=== PATIENT | male | born 1995 | race Caucasian/White ===

== ENCOUNTER 2024-08-20 09:10 | Outpatient (AMB) | payer OTHER, SELFPAY ==
--- NOTE | 2024-08-20 09:13 | MHC.OFFVIS ---
Intake Visit Reasons: microscopic hematuria Intake Note: Patient is present for MICROSCOPIC HEMATURIA Urology Medication:NONE Antibiotic Allergy:NONE Blood Thinner:NONE Flight Control Tower Operator Required: No Allergies No Known Allergies Allergy (Verified 08/20/24 09:14) Results AMB Urinalysis, Automated UA Leukoctes 0 Arvind/uL Last Edit by CRESCENCIO Islas on 08/20/24 09:28 UA Nitrite Negative Last Edit by CRESCENCIO Islas on 08/20/24 09:28 UA Urobilinogen 0.2 mg/dL Last Edit by CRESCENCIO Islas on 08/20/24 09:28 UA Protein 0 mg/dL Last Edit by CRESCENCIO Islas on 08/20/24 09:28 UA pH 6.0 Last Edit by CRESCENCIO Islas on 08/20/24 09:28 UA Blood 10 Emerson/uL Last Edit by CRESCENCIO Islas on 08/20/24 09:28 UA Specific [place] 1.020 Last Edit by CRESCENCIO Islas on 08/20/24 09:28 UA Ketone Negative Last Edit by CRESCENCIO Islas on 08/20/24 09:28 UA Bilirubin 0 mg/dL Last Edit by CRESCENCIO Islas on 08/20/24 09:28 UA Glucose 0 mg/dL Last Edit by CRESCENCIO Islas on 08/20/24 09:28 Results Reviewed Results Reviewed: Laboratory Last Values Urine pH (Auto) 6.0 08/20/24 09:28 Specific [place] (Auto) 1.020 08/20/24 09:28 Urine Protein (Auto) 0 mg/dL 08/20/24 09:28 Glucose (UA)(Auto) 0 mg/dL 08/20/24 09:28 Urine Ketones (Auto) Negative 08/20/24 09:28 Urine Blood (Auto) 10 Emerson/uL 08/20/24 09:28 Urine Nitrite (Auto) Negative 08/20/24 09:28 Urine Bilirubin (Auto) 0 mg/dL 08/20/24 09:28 Urine Urobilinogen (Auto) 0.2 mg/dL 08/20/24 09:28 Leukocyte Esterase (Auto) 0 Arvind/uL 08/20/24 09:28 Assessment & Plan Assessment & Plan Orders: Orders AMB Urinalysis Automated Today Z13.9 - Encounter for screening, unspecified Coding
== END 2024-08-20 10:49 | disposition home or self-care (01) ==
PROVIDERS: Visit Provider Urology
DX: Z13.9 Encounter for screening, unspecified (principal)

== ENCOUNTER → 2024-08-20 09:10 | Outpatient (BNVA) | payer OTHER, SELFPAY | PROVIDERS: Visit Provider Urology | DX: N48.1 Balanitis (principal); N47.8 Other disorders of prepuce; N47.1 Phimosis | CPT/HCPCS: 81003 ==

== ENCOUNTER 2025-01-17 15:46 | Outpatient (AMB) | payer OTHER, SELFPAY ==
--- NOTE | 2025-01-16 22:21 | MHC.OFFVIS ---
Intake Visit Reasons: 6m Intake Note: Patient is present for 6m/follow up Urology Medication:NONE Antibiotic Allergy:NONE Blood Thinner:NONE Allergies No Known Allergies Allergy (Verified 01/17/25 15:47) HPI Comments Details: 01/17/25-- 6 month FU-- h/o balanitis, LV 08/2024--declined circ at that time. History of Present Illness - The patient is a 29-year-old male presenting with concerns regarding testicular pain and fertility. - Balanitis and phimosis were initially treated in August with Lotrisone cream. - Circumcision was discussed as a potential treatment for recurrent symptoms. - The patient experienced testicular pain and underwent an ultrasound at [facility] - The patient has questions regarding fertility and sperm count, and was informed about available labs for semen analysis. Results - Ultrasound of the testicles performed at [facility]; Office will obtain results Plan - Obtain and review the ultrasound report from [facility] to assess testicular pain. - Discussed the option of circumcision for recurrent balanitis and phimosis. - Provided information on labs for semen analysis to address fertility concerns. - Follow-up will be arranged based on the results of the semen analysis and ultrasound, or as needed. 08/20/24--Artsem is here with complaints of redundant foreskin, sometimes diffult to retract, redness, and chaffing. States sometimes urine smells and foreskin is moist from urine, and when he wipes the foreskin he sees blood. Discussed treat options to include antifungal cream, discussed circumcision therapy. Pt is not interested in surgical procedure/circumcision at this time. Lotrisone cream ordered. Review of Systems Const All systems reviewed & are unremarkable except as noted in HPI and below Reports no additional complaints Eyes Reports no additional complaints ENT Reports no additional complaints Card Reports no additional complaints Resp Reports no additional complaints GI Reports no additional complaints Reports as per HPI Musc Reports no additional complaints Skin/Breast Reports system reviewed and no additional complaints, except as documented Neuro Reports no additional complaints Psych Reports no additional complaints Endo Reports no additional complaints Marcelino/Lymph Reports no additional complaints Aller/Immun Reports no additional complaints Telehealth Telehealth Telehealth Platform: Telephone Location of provider rendering services: practice address Location of patient: address on file Patient Identification confirmed using: Name, : Yes Telehealth method: voice only Patient verbally consented to treatment: Yes Patient verbally consented to billing insurance company: Yes Patient informed of any privacy concerns related to visit: Yes Minutes spent on Phone/Video with Pt.: 13 Assessment & Plan Assessment & Plan (1) Balanitis: Code(s): N48.1 - Balanitis (2) Redundant foreskin: Code(s): N47.8 - Other disorders of prepuce Category: Medical (3) Phimosis: Code(s): N47.1 - Phimosis Category: Medical (4) Testicular pain: Code(s): N50.819 - Testicular pain, unspecified Category: Medical Plan Plan - Obtain and review the ultrasound report from [facility] to assess testicular pain. - Discussed the option of circumcision for recurrent balanitis and phimosis. - Provided information on labs for semen analysis to address fertility concerns. - Follow-up will be arranged based on the results of the semen analysis and ultrasound, or as ne Patient Instructions: The patient had an opportunity to ask questions regarding treatment plan. The patient expressed understanding and agreement with the above treatment plan. The patient is aware they should contact our office by phone for worsening of their current condition or the appearance of new symptoms. Compliance is encouraged with any medications and followup testing that is ordered. It is a privilege to be allowed the opportunity to participate in the urologic care of your patient. If you have any questions or concerns regarding treatment for the above conditions please do not hesitate to contact me. The office telephone contact is [phone]. This note is constructed in part using voice recognition software. While every effort has been made to ensure accuracy manager field service errors may have been included. Yours sincerely, Mihaela Hall MD Scribe Plan - Not visible on output: Patient was informed and verbally consented to the use of an ambient scribe for clinic note documentation during this visit. Coding Level of Care Code Tele Est Pt Level 3 (26575) Diagnoses Balanitis N48.1 Redundant foreskin N47.8 Phimosis N47.1 Testicular pain N50.819
--- OUTSIDE RECORDS SUMMARY | 2025-01-17 15:48 | XMS_ITS | Clinical Summary ---
Author Organization [facility] Address [address] [place] [address] Care Team Providers Care Wardrobe Assistant Name Role Phone Lisa Diane NP Primary Care Provider Source Comments PLEASE NOTE, if this patient is a minor, it may be UNLAWFUL to discuss sensitive information that is contained in these records (such as FAMILY PLANNING, MENTAL HEALTH or SUBSTANCE ABUSE) with the minor patient's parent or other person without the patient's specific authorization.[facility] Allergies No known active allergies Medications fluticasone (FLONASE) 50 mcg/actuation nasal sprayIndication s:Chronic nasal congestion Place 1 [place] in both nostrils once daily 16 g 4 Active ibuprofen 800 mg tabletIndicatio ns:Right testicular pain,Epididymit is Take 1 Tablet by mouth 3 (three) times daily as needed for pain 90 Tablet 5 Active clotrimazole-be tamethasone (LOTRISONE) 1-0.05 % creamIndication s:Balanitis Apply topically once daily 45 g 5 Active Active Problems Problem Noted Date Diagnosed Date Hepatic steatosis 06/28/2024 Acne 03/18/2014 Immune to varicella 07/22/2009 Encounters Date Type Department Care Team Description 11/13/2024 10:00 AM EDT Office Visit [address] [phone] Reynaldo Dunn FNP from Last 3 Months Immunizations Immunization Administration Dates Next Due DTAP (DAPTACEL),5 PERTUSSIS ANTIGENS 01/28/2000, 08/11/1998,04/18/1998 HEP B, PED/ADOL (GRSGMSY-X-OTNP/RECOMBIVAX-PEDS) 12/26/2009,09/19/2009,08/22/2009 IPV (IPOL) 04/01/2005, 2,02/29/2000,06/26,08/11/1998,04/18/1998 MENINGOCOCCAL MCV4P (MENACTRA) 08/13/2016 MENINGOCOCCAL VACCINE,CONJUG ATE (NON-INTERFACE) 07/22/2009 MMR (MMR II/Priorix) 11/24/2004,10/14/1999 TDAP 02/27/2021, 1,11/28/2008,01/08 Family History Medical History Relation Name Comments No Known Problems Father Migraines Mother Relation Name Status Comments Brother Alive Father Alive Mother Alive Sister Alive Social History Tobacco Use Types Packs/Day Years Used Date Smoking Tobacco: Never Smokeless Tobacco: Never Alcohol Use Standard Drinks/Week Comments Yes 0 (1 standard drink = 0.6 oz pur e alcohol) social Social Connections Answer Date Recorded How often do you feel lonely or isolated from th ose around you? 1 06/15/2024 Financial Resource Strain Answer Date R ecorded Hard to pay for: Food 1 06/15/2024 Stress Answer Date Recorded Stress 0 09/23/2022 Physical Activity Answer Date Recorded Physical Activity 0 02/27/2021 Food Insecurity Answer Date Recorded Hard to pay for: Food 1 06/15/2024 Transportation Needs Answer Date Record ed Hard to pay for: Transportation 1 06/15/2024 Housing Stability Answer Date Recorded Hard to pay for: Rent/Mortgage payment 1 06/15/2024 Safety and Environment Answer Date Ludwin rded Safety 0 09/23/2022 Utilities Answer Date Recorded Hard to pay for: Utilities 1 06/15 Employment Answer Date Recorded Stress 0 09/28/2021 Sex and Gender Information Value Date Recorded Sex Assigned at Male 02/27/2021 11:52 AM PDT Legal Sex Male 11:36 AM PDT Gender Identity Male 02/27/2021 11:52 AM PDT Sexual Orientation Straight 02/27/2021 11 :52 AM PDT Last Filed Vital Signs Vital Sign Reading Time Taken Comments Blood Pressure 138/85 11/13/2024 9:38 AM EDT Pulse 84 11/13/2024 9:38 AM EDT Temperature 37.2 C (98.9 F) 11/13/2024 9:38 AM EDT Respiratory Rate 18 11/13/2024 9:38 AM EDT Oxygen Saturation 97% 06/15/2024 11:10 AM EST Inhaled Oxygen Concentration - - Weight 83.9 kg (185 lb) 11/13/2024 9:38 AM EDT Height 170.2 cm (5' 7 ) 09/23/2022 3:46 PM EDT Body Mass Index 28.98 09/23/2022 3:46 PM EDT Plan of Treatment Health Maintenance Due Date Last Done Comments Alcohol and Drug Screen 07/11/2024 06/15/20 24, 02/27/2021, 08/13/2016, Additional history exists Annual Wellness (Adult): Indicated (All Coverage) 06/15/2025 06/15/2024, 09/23/2022, 02/27/2021, Additional history exists Anxiety Screening 06/15/2025 06/15/2024 Tobacco Screening 06/15/2025 06/15/2024 Hypertension Screening (#1) 11/13/2025 Imm-DTaP/Tdap/Td (8 - Td or Tdap) 02/27/2031 02/27/2021, 05/19/2011, 11/28/2008, Additional history exists Imm-Hepatitis B Completed 12/26/2009, 09/08, 08/22/2009 HIV Screening Completed 02/27/2021 Hepatitis C Screening Completed 09/29/2022 Depression Annual Screen Completed 025, 06/15/2024, 08/13/2016 [id number] Discontinued Imm-Influenza Discontinued Procedures Procedure Name Priority Date/Time Associated Diagnosis Comments US SCROTUM/TESTICLES Urgent 11/16/2024 3:00 AM EDT Testicular discomfort HEPATITIS C AB W/RFLX HCV RNA, QT, RT PCR Routine 09/29/2022 11:47 AM EDT Need for hepatitis C screening test HIV 1/2 AG & AB W/RFLX (4TH GEN) Routine 02/27/2021 3:32 PM EDT Encounter for general adult medical examination w/o abnormal findings from Last 3 Months or Most Recently Relevant to Health Maintenance Results * US SCROTUM/TESTICLES [[id number]] ([facility]us) (11/16/2024 3:00 AM EDT) 11/16/2024 3:00 AM EDT Reynaldo Dunn CURRICULUM DEVELOPMENT COORDINATOR IMG ULTRASOUND Final Result [facility] Corporate Office [address], [address] [place] [address], * HEPATITIS C AB W/RFLX HCV RNA, QT, RT PCR (09/29/2022 11:47 AM EDT) Pathologist [facility] HEPATITIS C ANTIBODY NON-REACT BIJAL NON-REACT BIJAL [employer] [facility] SIGNAL TO CUT-OFF 0.10 <1.00 [employer] Comment: HCV antibody was non-reactive. There is no laboratory evidence of HCV infection. In most cases, no further action is required. However, if recent HCV exposure is suspected, a test for HCV RNA (test code 43257) is suggested. For additional information please refer to http://education.[employer]/faq/ATY69q0 (This link is being provided for informational/ educational purposes only.) Blood Blood / Unknown 09/29/2022 1 1:47 AM EDT 09/29/2022 11:48 AM EDT Lisa Diane SYSTEMS ADMINISTRATION ANALYST LAB - BLOOD DRAW Edited Resu lt - Final [facility] [address] [address], [facility] [address] [address] * HIV 1/2 AG & AB W/RFLX (4TH GEN) (02/27/2021 3:32 PM EDT) HIV AG/AB, 4TH GEN NON-REAC TIVE NON-REAC TIVE [employer] [facility] Comment: HIV-1 antigen and HIV-1/HIV-2 antibodies were not detected. There is no laboratory evidence of HIV infection. PLEASE NOTE: This information has been disclosed to you from records whose confidentiality may be protected by state law. If your state requires such protection, then the state law prohibits you from making any further disclosure of the information without the specific written consent of the person to whom it pertains, or as otherwise permitted by law. A general authorization for the release of medical or other information is NOT sufficient for this purpose. For additional information please refer to http://education.[employer]/faq/TND713 (This link is being provided for informational/ educational purposes only.) The performance of this assay has not been clinically validated in patients less than 2 years old. Blood Blood / Unknown 02/27/2021 3 :32 PM EDT 02/27/2021 3:33 PM EDT Narrative [employer] - 03/04/2021 3:43 PM EDT FASTING:NO Flower Herzog [facility] [place] LAB - BLOOD DRAW Final Resu lt [facility] [address] [address], [facility] [address] [address] from Last 3 Months or Most Recently Relevant to Health Maintenance Insurance [facility] [place]ICAID Care Teams Wardrobe Assistant Relationship Specialty Start Date End Date Lisa Diane NP [address] [place] [address] PCP - General Internal Medicine 09/23/22
== END 2025-01-17 16:56 | disposition home or self-care (01) ==
LOC: HO.HUSH 15:46
PROVIDERS: Visit Provider Urology
DX: N48.1 Balanitis (principal); N47.8 Other disorders of prepuce; N47.1 Phimosis; N50.819 Testicular pain, unspecified
CPT/HCPCS: 99213

== ENCOUNTER 2025-05-31 11:34 | Outpatient (AMB) | payer OTHER, SELFPAY ==
--- NOTE | 2025-05-31 12:21 | MHC.OFFVIS ---
Intake Visit Reasons: Follow up Intake Note: Patient is present for a follow up Urology Medication:NONE Antibiotic Allergy:NONE Blood Thinner:NONE Allergies No Known Allergies Allergy (Verified 05/31/25 12:30) HPI Comments Details: 05/31/25-the patient in the past balanitis 01/17/25-- 6 month FU-- h/o balanitis, LV 08/2024--declined circ at that time. History of Present Illness - The patient is a 29-year-old male presenting with concerns regarding testicular pain and fertility. - Balanitis and phimosis were initially treated in August with Lotrisone cream. - Circumcision was discussed as a potential treatment for recurrent symptoms. - The patient experienced testicular pain and underwent an ultrasound at [facility] - The patient has questions regarding fertility and sperm count, and was informed about available labs for semen analysis. Results - Ultrasound of the testicles performed at [facility]; Office will obtain results Plan - Obtain and review the ultrasound report from [facility] to assess testicular pain. - Discussed the option of circumcision for recurrent balanitis and phimosis. - Provided information on labs for semen analysis to address fertility concerns. - Follow-up will be arranged based on the results of the semen analysis and ultrasound, or as needed. 08/20/24--Artsem is here with complaints of redundant foreskin, sometimes diffult to retract, redness, and chaffing. States sometimes urine smells and foreskin is moist from urine, and when he wipes the foreskin he sees blood. Discussed treat options to include antifungal cream, discussed circumcision therapy. Pt is not interested in surgical procedure/circumcision at this time. Lotrisone cream ordered. Results AMB Urinalysis, Automated UA Leukoctes 0 Arvind/uL Last Edit by Kaykay Powell on 05/31/25 16:51 UA Nitrite Negative Last Edit by Kaykay Powell on 05/31/25 16:51 UA Urobilinogen 0.2 mg/dL Last Edit by Kaykay Powell on 05/31/25 16:51 UA Protein 0 mg/dL Last Edit by Kaykay Powell on 05/31/25 16:51 UA pH 6.0 Last Edit by Kaykay Powell on 05/31/25 16:51 UA Blood 0 Emerson/uL Last Edit by Kaykay Powell on 05/31/25 16:51 UA Specific [place] 1.015 Last Edit by Kaykay Powell on 05/31/25 16:51 UA Ketone Negative Last Edit by Kaykay Powlel on 05/31/25 16:51 UA Bilirubin 0 mg/dL Last Edit by Kaykay Powell on 05/31/25 16:51 UA Glucose 0 mg/dL Last Edit by Kaykay Powell on 05/31/25 16:51 Assessment & Plan Assessment & Plan Orders: Orders AMB Urinalysis Automated Today Z13.9 - Encounter for screening, unspecified Medications: New ketoconazole 2% 1 appl topical BID PRN 30 grams 1RF balanitis Coding
--- OUTSIDE RECORDS SUMMARY | 2025-05-31 12:25 | XMS_ITS | Data Portability ---
Author Organization [place] - [facility], Allergy Address [address] [place] [phone] Assessment Encounter Date Assessment Date Assessment LastModified by Organization Details LastModified Time 01/24/2025 01/24/2025 29-year-old male presents for evaluation of chronic rhinitis. Anterior rhinoscopy demonstrates 1+ rightward septal deviation with left septal spur. There is 2+ inferior turbinate hypertrophy. Patient describes symptoms of chronic rhinitis suggestive of vasomotor rhinitis. This condition is often characterized by clear watery nasal discharge which is made worse with temperature fluctuation, eating, and supine position. Recommend trial of ipratropium nasal spray. They should begin use with a single spray before bed and may gradually increase the frequency if they find relief. Side effects of drying the nasal mucosa may decrease the tolerance of this medication. They may also use nasal saline to help balance the nasal mucosa. Recommend patient return for reevaluation in 3 months. [email or web address] Not available 01/24/2025 14:16:59 Plan of Treatment Reminders Order Date Submit Date Provider Last Modified By Organization Details Last Modified Time Details Appointments None recorded. Lab None recorded. Referral None recorded. Procedures None recorded. Surgeries None recorded. Imaging None recorded. Medication Orders ipratropium bromide 21 mcg (0.03 %) nasal spray 2024 [facility]/Pharmacy #[id number], [address], [place], [address], 13:41:49 Patient TargetsNo targets recorded. Patient InstructionsNo instructions recorded. Reason for Referral None Reported. Problems Name Problem SNOMED Code Status Onset Date Resolution Date Notes Provider Name and Address Organization Details Recorded Time Vasomotor rhinitis 1012121 Active 025 SADIQ SPARKS PA-C [address] [facility],[place] [address], [place], [address] , [place] - [facility] 13:40:46 Chronic rhinitis 46385059 Active 025 SADIQ SPARKS PA-C [address] [facility],[place] [address], [place], [address] , [place] - [facility] 13:40:53 Problem Notes None recorded. Procedures Surgical History Date Name Laterality Status Provider Name and Address Organization Details Recorded Time 01/24/2025 NasalEndos copy_DP completed SADIQ SPARKS PA-C [address] [place] [address],[place] [address], [place], [address], [place] - [facility] 01/24/2025 14:16:15 Imaging Results None recorded. Procedure Notes None recorded. Medical Equipment None Reported. Medications Name Sig Start Date Stop Date Status Note LastModified by Organization Details LastModified Time ibuprofen 800 mg tablet TAKE 1 TABLET BY MOUTH THREE TIMES A DAY NEEDED FOR PAIN active Not Available Not Available No t Available clotrimazole -betamethaso ne 1 %-0.05 % topical cream APPLY 1 APPLICATION TOPICALLY 2 TIMES A DAY active Not Available Not Available Not Available ipratropium bromide 21 mcg (0.03 %) nasal spray [place] 2 sprays twice a day by intranasal route as directed for 90 days, for chronic rhinitis. 2024 active Not Available Not Available Not Avai lable Vitals Date Recorded Body weight Body mass index (BMI) Body height Provider Name and Address Organization Details Last Updated DateTime 01/24/2025 73272.59 g 29 kg/m2 170.18 cm Afua Coates [place] - [facility] 01/24/2025 13:14:51 Social History None recorded. Functional Status None recorded. Mental Status None recorded. Family History Nothing Reported. Medical History No medical history recorded. Past Encounters Encounter ID Performer Location Encounter Start Date Encounter Closed Date Diagnosis/Indication Diagnosis SNOMED-CT Code Diagnosis ICD10 Code Diagnosis IMO Codes Diagnosis Note [id number] SADIQ SPARKS PA-C [facility] [address] [place] [address] 01/24/2025 13:06:00 01/24/2025 13:43:21 Vasomotor rhinitis 5539040 J30.0 31885 Health Concerns Section Related Observation LastModified by Organization Detai ls LastModified Time None Recorded Concern Status LastModified by Organization Details LastModified Time None Recorded Advance Directives Directive None Recorded Payers Insurance Date Sequence Insurance Name Policy Number Policy Ponce Covered Member ID Ponce Member ID Guarantor Name 02/01/2025 1 [facility] [id number] Artsem Ivanou [id number] Artsem Ivanou 02/01/2025 2 [place] [facility] Artsem Ivanou [id number] Artsem Ivanou Notes Date Note Type Note Provider Name and Address Organization Details Recorded Time 01/24/2025 text/html ROS as noted in the HPI 29yo male presents for evaluation of the nose. He reports chronic nasal congestion that alternates sides. This started many years ago. He feels he is breathing through his nose at 80%, worse when lying flat or in cold weather. He reports runny nose with eating certain foods. He has concern for septal deviation. Endorses improvement with nasal strips. Endorses snoring, without apneic episodes. Denies history of environmental allergies. No family history of environmental allergies. No recurrent sneezing or itchy skin. No prior head or neck surgery. SADIQ SPARKS PA-C [address] [place] [address],[place] [address], [place], [phone], [facility] - [facility] 01/24/2025 14:17:42
== END 2025-05-31 12:53 | disposition home or self-care (01) ==
LOC: HO.HUSH 11:35
PROVIDERS: Visit Provider Urology
DX: Z13.9 Encounter for screening, unspecified (principal)

== ENCOUNTER → 2025-05-31 11:34 | Outpatient (BNVA) | payer OTHER, SELFPAY | PROVIDERS: Visit Provider Urology | DX: Z13.9 Encounter for screening, unspecified (principal) | CPT/HCPCS: 81003 ==